=== PATIENT | female | born 1965 | race Caucasian/White ===

== ENCOUNTER 2023-11-16 06:53 | Day surgery (SDC) | payer OTHER ==
[~2023-11-16] VITALS: Ht 162.6 cm; Wt 62.1 kg
[2023-11-16] MEDS ORDERED: MEPERIDINE 100 MG INJ. 100 MG/ML VIAL ONE (08:14)
[2023-11-16] MEDS ORDERED: MIDAZOLAM HCL 5 MG/5 ML VIAL ONE (08:15)
[2023-11-16 12:37] VITALS: O2SAT 99
[2023-11-16 14:45] VITALS: BP_SYST 108; PULSE 50; RESP 17
== END 2023-11-16 10:45 | disposition home or self-care (01) ==
LOC: SDS 06:53 → SMU 06:55 → SDS 10:45
PROVIDERS: ATTEND Internal Medicine
DX: Z12.11 Encounter for screening for malignant neoplasm of colon (principal); K64.8 Other hemorrhoids; Z86.010 Personal history of colon polyps; Z80.0 Family history of malignant neoplasm of digestive organs
CPT/HCPCS: 45378; 99152; J2250; J2175